=== PATIENT | male | born 1945 | race Caucasian/White ===

== ENCOUNTER 2016-07-06 03:56 | Emergency (ER) | payer OTHER, MEDICARE ==
[2016-07-06 04:07] VITALS: RESP 18
--- NOTE | 2016-07-06 04:15 | EDPHY ---
H & P Stated Complaint: cough, dysuria and urgency, fever and flank pain for a few days HPI/ROS: HPI The patient presents with urinary frequency which has been present for the last 2 days, with 15 episodes of nocturia tonight. This is not associated with any dysuria, penile discharge, hematuria, abdominal pain. He does report bilateral flank pain which began 2 days ago as well. He denies any fever or chills. He thinks he may have a history of urinary tract infection. He does not have any nausea or vomiting. He also reports a cough for the last 2 days productive of greenish sputum. REVIEW OF SYSTEMS Constitutional: No fever, no chills. Eyes: No discharge. ENT: No sore throat. Cardiovascular: No chest pain, no palpitations. Respiratory: No cough, no shortness of breath. Gastrointestinal: No abdominal pain, no vomiting. Genitourinary: No hematuria. Musculoskeletal: No back pain. Skin: No rashes. Neurological: No headache. 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 [employer] PHYSICAL General Appearance: Alert, no distress Eyes: Pupils equal and round no pallor or injection ENT, Mouth: Mucous membranes moist Respiratory: There are no retractions, lungs are clear to auscultation Cardiovascular: Regular rate and rhythm Gastrointestinal: Abdomen is soft and non-tender, no masses, bowel sounds normal Neurological: A&O, moves all extremities Skin: Warm and dry, no rashes Musculoskeletal: Neck is supple non tender Extremities: symmetrical, full range of motion Psychiatric: Patient is oriented X 3, there is no agitation Source: Patient Exam Limitations: No limitations - Personal History Current Tetanus/Diphtheria Vaccine: Unsure Current Tetanus Diphtheria and Acellular Pertussis (TDAP): Unsure - Medical/Surgical History Hx Asthma: No Hx Chronic Respiratory Disease: No Hx Diabetes: No Hx Cardiac Disease: Yes Hx Renal Disease: No Hx Cirrhosis: No Hx Alcoholism: No Hx HIV/AIDS: No Hx Splenectomy or Spleen Trauma: No Other PMH: HTN, gout, hi chol. hernia repair x2, left bicep repair, right rot cuff repair Constitutional: Initial Vital Signs Heart Rate 49 L 07/06/16 04:00 Respiratory Rate 18 07/06/16 04:00 Blood Pressure 144/77 H 07/06/16 04:00 O2 Sat (%) 94 07/06/16 04:00 O2 Delivery Mode Room Air Allergies/Adverse Reactions: No Known Allergies Allergy (Unverified 04/01/10 17:07) Home Medications: Medication Instructions Recorded Aspirin 81mg (*) 07/06/16 Crestor 07/06/16 Metoprolol Tartrate 07/06/16 Simvastatin 07/06/16 levOFLOXACIN [Levofloxacin] 500 mg PO DAILY #7 tablet 07/06/16 Medical Decision Making - Diagnostics Imaging: Chest x-ray two views shows no infiltrate, interpreted by me, radiology interpretation is pending. ED Course/Re-evaluation: The patient had labs checked which were all unremarkable including a UA. Because of the high suspicion for urinary tract infection, I have sent a urine culture and will presumptively treat him with ceftriaxone. He may possibly have BPH as the cause of his nocturia, however this seems like quite a progression from his baseline. Chest x-ray is also unremarkable. He may have a viral illness as the cause of his symptoms. He does appear quite well and his vital signs are normal, so I do plan to discharge him with primary care follow- up. He is to return to the emergency room if he is worse in any way. Differential Diagnosis: This is a 71-year-old relatively healthy male with hypertension who presents from home with 2 days of urinary frequency associated with generalized fatigue and cough. Differential diagnosis includes urinary tract infection, new onset diabetes, pyelonephritis, pneumonia, viral URI. - Data Points Laboratory Results: Laboratory Results 07/06/16 04:35 07/06/16 04:35 07/06/16 07/06/16 04:35 04:10 WBC 6.95 10^3/uL (3.80-9.50) RBC 5.14 10^6/uL (4.40-6.38) Hgb 16.1 g/dL (13.7-17.5) Hct 45.8 % (40.0-51.0) MCV 89.1 fL (81.5-99.8) MCH 31.3 pg (27.9-34.1) MCHC 35.2 g/dL (32.4-36.7) RDW 12.6 % (11.5-15.2) Plt Count 153 10^3/uL (150-400) MPV 11.2 fL (8.7-11.7) Neut % (Auto) 52.0 % (39.3-74.2) Lymph % (Auto) 32.2 % (15.0-45.0) [place] % (Auto) 14.4 H % (4.5-13.0) Eos % (Auto) 0.4 L % (0.6-7.6) Baso % (Auto) 0.9 % (0.3-1.7) Nucleat RBC Rel Count 0.0 % (0.0-0.2) Absolute Neuts (auto) 3.61 10^3/uL (1.70-6.50) Absolute Lymphs (auto) 2.24 10^3/uL (1.00-3.00) Absolute Monos (auto) 1.00 H 10^3/uL (0.30-0.80) Absolute Eos (auto) 0.03 10^3/uL (0.03-0.40) Absolute Basos (auto) 0.06 10^3/uL (0.02-0.10) Absolute Nucleated RBC 0.00 10^3/uL (0-0.01) Immature Gran % 0.1 % (0.0-1.1) Immature Gran # 0.01 10^3/uL (0.00-0.10) Sodium 139 mEq/L (134-144) Potassium 4.2 mEq/L (3.5-5.2) Chloride 108 mEq/L (97-110) Carbon Dioxide 20 L mEq/l (22-31) Anion Gap 11 mEq/L (8-16) BUN 11 mg/dL (7-23) Creatinine 0.9 mg/dL (0.7-1.3) Estimated GFR > 60 Glucose 106 H mg/dL (70-100) Calcium 8.9 mg/dL (8.5-10.4) Total Bilirubin 1.3 mg/dL (0.1-1.4) AST 31 IU/L (17-59) ALT 42 IU/L (21-72) Alkaline Phosphatase 55 IU/L (38-126) Total Protein 7.0 g/dL (6.3-8.2) Albumin 4.0 g/dL (3.5-5.0) Urine Color YELLOW Urine Appearance CLEAR Urine pH 6.0 (5.0-7.5) Ur Specific [place] 1.008 (1.002-1.030) Urine Protein NEGATIVE (NEGATIVE) Urine Ketones NEGATIVE (NEGATIVE) Urine Blood NEGATIVE (NEGATIVE) Urine Nitrate NEGATIVE (NEGATIVE) Urine Bilirubin NEGATIVE (NEGATIVE) Urine Urobilinogen NEGATIVE EU (0.2-1.0) Ur Leukocyte Esterase NEGATIVE (NEGATIVE) Ur Culture Indicated? NOT INDICATED (NI) Urine Glucose NEGATIVE (NEGATIVE) Medications Given: Discontinued Medications Ceftriaxone Sodium/Dextrose (Rocephin 1 Gm (Premix)) 50 mls @ 100 mls/hr IV EDNOW ONE PRN Reason: Protocol Stop: 07/06/16 05:39 Last Admin: 07/06/16 05:16 Dose: 50 mls Departure - Departure Disposition: Home, Routine, Self-Care Clinical Impression: Urinary frequency, Cough Condition: Good Instructions: Urinary Tract Infection in Men (ED) Additional Instructions: Your urine test today was normal, however it is possible that you may have a urinary tract infection given her symptoms. We have sent her urine test for culture testing and this takes a few days to result. You should follow up with your primary care doctor to see if your urine is actually growing any bacteria. If it is, you should continue the antibiotic, if not it is safe to stop it. If your urinary symptoms continue after you finish the antibiotic, you need to follow up with your regular doctor. This may be the sign of an enlarged prostate and as you may be able to take some medication to help with this. You should return to the emergency room if your worse in any way. Referrals: Bogdan Garcia MD [Primary Care Provider] - As per Instructions Prescriptions: levOFLOXACIN [Levofloxacin] 500 mg PO DAILY #7 tablet
[2016-07-06 04:43] LABS: % IMMATURE GRANULYOCYTES 0.1 % (0.0-1.1); ABSOLUTE IMMATURE GRANULOCYTES 0.01 10^3/uL (0.00-0.10); ADD DIFF? NO; ADD MORPH? NO; ADD SCAN? NO; ATYPICAL LYMPHOCYTE FLAG 30 (0-99); FRAGMENT RBC FLAG 0 (0-99); HEMATOCRIT 45.8 % (40.0-51.0); HEMOGLOBIN 16.1 g/dL (13.7-17.5); LEFT SHIFT FLG 0 (0-99); LIPEMIA HEMOLYSIS FLAG 90 (0-99); MEAN CELL HEMOGLOBIN 31.3 pg (27.9-34.1); MEAN CELL HEMOGLOBIN CONCENTR. 35.2 g/dL (32.4-36.7); MEAN CELL VOLUME 89.1 fL (81.5-99.8); MEAN PLATELET VOLUME 11.2 fL (8.7-11.7); PLATELET CLUMPS FLAG 0 (0-99); PLATELET COUNT 153 10^3/uL (150-400); RED BLOOD CELL COUNT 5.14 10^6/uL (4.40-6.38); RED CELL DISTRIBUTION WIDTH 12.6 % (11.5-15.2)
[2016-07-06 04:45] LABS: COLOR YELLOW; LEUKOCYTE ESTERASE,URINE NEGATIVE (NEGATIVE); NITRITE,URINE NEGATIVE (NEGATIVE)
[2016-07-06 05:01] LABS: ALANINE AMINOTRANSFERASE 42 IU/L (21-72); ALKALINE PHOSPHATASE 55 IU/L (38-126); ANION GAP 11 mEq/L (8-16); ASPARTATE AMINOTRANSFERASE 31 IU/L (17-59); BILIRUBIN,TOTAL 1.3 mg/dL (0.1-1.4); CALCIUM 8.9 mg/dL (8.5-10.4); CARBON DIOXIDE 20 mEq/l (22-31); CHLORIDE 108 mEq/L (97-110); CREATININE 0.9 mg/dL (0.7-1.3); GLOMERULAR FILTRATION RATE > 60; GLUCOSE 106 mg/dL (70-100); POTASSIUM 4.2 mEq/L (3.5-5.2); SODIUM 139 mEq/L (134-144)
[2016-07-06 05:44] VITALS: BP 134/68; PULSE 50; TEMP 98.6; O2SAT 94
--- NOTE | 2016-07-06 09:17 | DX ---
PA and lateral chest. Clinical History: cough Comparison Study: April 01, 2010. Findings: The lungs are clear. No pleural disease identified. Heart size is borderline prominent.. Moderate tortuosity descending thoracic aorta.. Impression: Stable negative chest..
== END 2016-07-06 05:44 | disposition home or self-care (01) ==
DX: R35.0 Frequency of micturition (principal); R05 Cough; I10 Essential (primary) hypertension; Z79.82 Long term (current) use of aspirin
CPT/HCPCS: 71020; 96365; 99284; J0696

== ENCOUNTER → 2016-11-07 | Outpatient (CLI) | payer OTHER, MEDICARE | LOC: BHFA 11:45 | PROVIDERS: ATTEND Internal Medicine Interventional Cardiology | DX: I48.91 Unspecified atrial fibrillation (principal); I25.10 Atherosclerotic heart disease of native coronary artery without angina pectoris; I10 Essential (primary) hypertension; I47.1 Supraventricular tachycardia; E78.5 Hyperlipidemia, unspecified; I71.2 Thoracic aortic aneurysm, without rupture ==

== ENCOUNTER → 2017-01-05 | Outpatient (CLI) | payer OTHER, MEDICARE | LOC: BHFA 10:00 | PROVIDERS: ATTEND Internal Medicine Cardiovascular Disease | DX: I48.91 Unspecified atrial fibrillation (principal); I71.9 Aortic aneurysm of unspecified site, without rupture ==

== ENCOUNTER 2017-02-02 02:58 | Emergency (ER) | payer OTHER, MEDICARE ==
[2017-02-02] MEDS ORDERED: IOPAMIDOL (ISOVUE 370) 100 ML BTL IV ONE (03:10)
[2017-02-02 03:11] LABS: % IMMATURE GRANULYOCYTES 0.1 % (0.0-1.1); ABSOLUTE IMMATURE GRANULOCYTES 0.01 10^3/uL (0.00-0.10); ADD DIFF? NO; ADD MORPH? NO; ADD SCAN? NO; ATYPICAL LYMPHOCYTE FLAG 10 (0-99); FRAGMENT RBC FLAG 0 (0-99); HEMATOCRIT 44.6 % (40.0-51.0); HEMOGLOBIN 15.1 g/dL (13.7-17.5); LEFT SHIFT FLG 0 (0-99); LIPEMIA HEMOLYSIS FLAG 90 (0-99); MEAN CELL HEMOGLOBIN 30.5 pg (27.9-34.1); MEAN CELL HEMOGLOBIN CONCENTR. 33.9 g/dL (32.4-36.7); MEAN CELL VOLUME 90.1 fL (81.5-99.8); MEAN PLATELET VOLUME 11.8 fL (8.7-11.7); PLATELET CLUMPS FLAG 10 (0-99); PLATELET COUNT 145 10^3/uL (150-400); RED BLOOD CELL COUNT 4.95 10^6/uL (4.40-6.38); RED CELL DISTRIBUTION WIDTH 13.1 % (11.5-15.2)
[2017-02-02 03:21] LABS: INR 1.14 (0.83-1.16); PROTIME(PATIENT) 14.5 SEC (12.0-15.0)
[2017-02-02 03:22] LABS: ANION GAP 13 mEq/L (8-16); CALCIUM 9.5 mg/dL (8.5-10.4); CARBON DIOXIDE 21 mEq/l (22-31); CHLORIDE 107 mEq/L (97-110); CREATININE 1.1 mg/dL (0.7-1.3); GLOMERULAR FILTRATION RATE > 60; GLUCOSE 106 mg/dL (70-100); SODIUM 141 mEq/L (134-144)
[2017-02-02 03:29] VITALS: TEMP 96.3
--- NOTE | 2017-02-02 03:36 | CPEKG ---
Heart Rate: 70 RR Interval: 857 QRSD Interval: 106 QT Interval: 424 QTC Interval: 458 QRS Johnson: 4 T Wave Johnson: 25 EKG Severity - ABNORMAL ECG - EKG Impression: ATRIAL FIBRILLATION, V-RATE 56-88 Electronically Signed By: William Anguiano 02-Feb-2017 06:39:25
[2017-02-02 03:45] VITALS: BP 126/76; PULSE 86; RESP 20; O2SAT 95
--- NOTE | 2017-02-02 03:47 | EDPHY ---
H & P Stated Complaint: Stroke symptoms Time Seen by Provider: 02/02/17 03:08 HPI/ROS: Chief Complaint: Right-sided weakness, not speaking HPI: 71-year-old male who was last seen normal at 10 o'clock when he went to bed. At 2 o'clock this morning his heard him get up and walk to the other room and walked back in get back into bed. Shortly after that she heard a fall and found him on the floor. He was unable to move his right side at that time was not answering questions. She called EMS. On arrival EMS found the patient awake but unable to move his right side. A stroke alert was called. He was noted to have an expressive aphasia. Fingerstick at that time was 110. He has otherwise been in his normal state of health. No recent falls or illnesses. Unobtainable as the patient is unable to answer questions Social History: No smoking, no alcohol, no recreational drug use Family History: non-contributory Physical Exam: Gen: Awake, Alert, not speaking or answering questions HEENT: Nose: no rhinorrhea Eyes: PERRLA, eyes tend to wonder to the left but are not forced deviation. He is unable to cross midline bilaterally Mouth: Moist mucosa Neck: Supple, no JVD Chest: nontender, lungs clear to auscultation Heart: S1, S2 normal, no murmur Abd: Soft, non-tender, no guarding Ext: no edema, non-tender Skin: no rash Neuro: See NIH stroke scale - Personal History Current Tetanus/Diphtheria Vaccine: Unsure Current Tetanus Diphtheria and Acellular Pertussis (TDAP): Unsure - Medical/Surgical History Hx Asthma: No Hx Chronic Respiratory Disease: No Hx Diabetes: No Hx Cardiac Disease: Yes Hx Renal Disease: No Hx Cirrhosis: No Hx Alcoholism: No Hx HIV/AIDS: No Hx Splenectomy or Spleen Trauma: No Other PMH: HTN, gout, hi chol. hernia repair x2, left bicep repair, right rot cuff repair - Social History Smoking Status: Unknown if ever smoked Constitutional: Initial Vital Signs Temperature (C) 35.7 C L 02/02/17 03:15 Heart Rate 80 02/02/17 03:15 Respiratory Rate 15 02/02/17 03:15 Blood Pressure 158/104 H 02/02/17 03:15 O2 Sat (%) 95 02/02/17 03:15 O2 Delivery Mode Room Air O2 (L/minute) 2 Allergies/Adverse Reactions: No Known Allergies Allergy (Unverified 02/02/17 03:27) Home Medications: Medication Instructions Recorded Aspirin 81mg (*) 07/06/16 Crestor 07/06/16 Metoprolol Tartrate 07/06/16 Simvastatin 07/06/16 levOFLOXACIN [Levofloxacin] 500 mg PO DAILY #7 tablet 07/06/16 Medical Decision Making - Diagnostics EKG Interpretation: ECG shows atrial fibrillation with a rate of 70. No acute ST or T-wave changes. Imaging Results: CT scan of the head shows a dense left MCA sign per Dr. Huerta CT angiogram of the head neck shows a thrombus in the distal right internal carotid at the MCA M1 branch per Dr. Huerta. Imaging: Discussed imaging studies w/ call taker Radiologist ED Course/Re-evaluation: Patient arrived as a stroke alert. After initial NIH score obtained in the hallway patient went immediately to CT scan. I discussed the patient with Dr. Vail, [facility] Neurology. CT scan results noted. She wants to know the results of the CT angiogram. Given the unclear onset of symptoms patient is likely not a thrombolytic candidate. Patient sounds like he was ambulating but he has not spoken to in did not hear of speak so is unclear as to whether he had symptoms prior to getting out of bed. 0320 CT angiogram noted for a thrombus in the distal internal carotid. Case again discussed with Dr. Vail. Patient is to be flown to [facility] for intra-arterial intervention. Patient's blood pressure is appropriate. She does not want any further treatment at this time. Again given the unclear onset of symptoms the patient is not a candidate for IV thrombolytics. Patient is awake and maintaining his airway. His condition is unchanged. I have discussed at length with the patient's with the plan will be. Atrial fibrillation is noted on the ECG. Patient has left the department with the air medical evacuation. Critical Care Time: I spent a total of 40 minutes of critical care time in obtaining history, performing a physical exam, bedside monitoring of interventions, collecting and interpreting tests and discussion with consultants but not including time spent performing procedures. - Data Points Laboratory Results: Laboratory Results 02/02/17 03:00 02/02/17 03:00 02/02/17 02/02/17 02/02/17 03:00 03:00 03:00 WBC 7.60 10^3/uL 10^3/uL (3.80-9.50) RBC 4.95 10^6/uL 10^6/uL (4.40-6.38) Hgb 15.1 g/dL g/dL (13.7-17.5) POC Hgb Hct 44.6 % % (40.0-51.0) POC Hct MCV 90.1 fL fL (81.5-99.8) MCH 30.5 pg pg (27.9-34.1) MCHC 33.9 g/dL g/dL (32.4-36.7) RDW 13.1 % % (11.5-15.2) Plt Count 145 10^3/uL L 10^3/uL (150-400) MPV 11.8 fL H fL (8.7-11.7) Neut % (Auto) 40.4 % % (39.3-74.2) Lymph % (Auto) 47.8 % H % (15.0-45.0) [place] % (Auto) 8.8 % % (4.5-13.0) Eos % (Auto) 2.2 % % (0.6-7.6) Baso % (Auto) 0.7 % % (0.3-1.7) Nucleat RBC Rel Count 0.0 % % (0.0-0.2) Absolute Neuts (auto) 3.07 10^3/uL 10^3/uL (1.70-6.50) Absolute Lymphs (auto) 3.63 10^3/uL H 10^3/uL (1.00-3.00) Absolute Monos (auto) 0.67 10^3/uL 10^3/uL (0.30-0.80) Absolute Eos (auto) 0.17 10^3/uL 10^3/uL (0.03-0.40) Absolute Basos (auto) 0.05 10^3/uL 10^3/uL (0.02-0.10) Absolute Nucleated RBC 0.00 10^3/uL 10^3/uL (0-0.01) Immature Gran % 0.1 % % (0.0-1.1) Immature Gran # 0.01 10^3/uL 10^3/uL (0.00-0.10) PT 14.5 SEC SEC (12.0-15.0) INR 1.14 (0.83-1.16) POC Sodium Sodium 141 mEq/L mEq/L (134-144) POC Potassium Potassium 4.0 mEq/L mEq/L (3.5-5.2) POC Chloride Chloride 107 mEq/L mEq/L (97-110) Carbon Dioxide 21 mEq/l L mEq/l (22-31) Anion Gap 13 mEq/L mEq/L (8-16) POC BUN BUN 29 mg/dL H mg/dL (7-23) Creatinine 1.1 mg/dL mg/dL (0.7-1.3) POC Creatinine Estimated GFR > 60 Glucose 106 mg/dL H mg/dL (70-100) POC Glucose Calcium 9.5 mg/dL mg/dL (8.5-10.4) 02/02/17 02:56 WBC RBC Hgb POC Hgb 15.3 gm/dL gm/dL (13.7-17.5) Hct POC Hct 45 % % (40-51) MCV MCH MCHC RDW Plt Count MPV Neut % (Auto) Lymph % (Auto) [place] % (Auto) Eos % (Auto) Baso % (Auto) Nucleat RBC Rel Count Absolute Neuts (auto) Absolute Lymphs (auto) Absolute Monos (auto) Absolute Eos (auto) Absolute Basos (auto) Absolute Nucleated RBC Immature Gran % Immature Gran # PT INR POC Sodium 143 mEq/L mEq/L (134-144) Sodium POC Potassium 3.7 mEq/L mEq/L (3.3-5.0) Potassium POC Chloride 107 mEq/L mEq/L (97-110) Chloride Carbon Dioxide Anion Gap POC BUN 31 mg/dL H mg/dL (7-23) BUN Creatinine POC Creatinine 1.2 mg/dL mg/dL (0.7-1.3) Estimated GFR Glucose POC Glucose 111 mg/dL H mg/dL (70-100) Calcium Point of Care Test Results: 02/02/17 02:56 POC Sodium 143 POC Potassium 3.7 POC Chloride 107 POC BUN 31 H POC Creatinine 1.2 POC Glucose 111 H Departure - Departure Disposition: Acute Care Hospital Not [facility] Clinical Impression: Stroke, Atrial fibrillation Condition: Critical Referrals: Bogdan Garcia MD [Primary Care Provider] - As per Instructions NIH Stroke Scale Date of Exam: 02/02/17 Time of Exam: 02:55 Level of Consciousness: Alert LOC Questions: Answers None LOC Commands: Performs Both Correctly Best Gaze: Partial Gaze Palsy Visual: Complete Hemianopia Facial Palsy: Minor Paralysis Motor Arm-Left: No Drift Motor Arm-Right: No Effort to [place] Motor Leg-Left: No Drift Motor Leg-Right: No Effort to [place] Limb Ataxis: Absent Sensory: Normal Best Language: Mute/Global Aphasia Dysarthria: Severe Dysarthria Extinction and Inattention (Neglect): Bilat Sensory Extinction NIH Scale Score: 18
== END 2017-02-02 04:11 | disposition short-term general hospital (02) ==
LOC: EDUNIT#
DX: I63.9 Cerebral infarction, unspecified (principal); I48.91 Unspecified atrial fibrillation; I10 Essential (primary) hypertension; R29.723 NIHSS score 23; Z79.82 Long term (current) use of aspirin
CPT/HCPCS: 70450; 70496; 70498; 71010; 93005; 99291; Q9967; 82947-QW